=== PATIENT | male | born 1975 | race African-American/Black ===

== ENCOUNTER 2020-11-19 20:53 | Emergency (ER) | payer MEDICAID ==
[~2020-11-19] VITALS: Ht 182.9 cm; Wt 121.0 kg
[2020-11-19 21:06] VITALS: BP 174/113
== END 2020-11-19 21:57 | disposition left against medical advice (07) ==
LOC: ER 20:53
DX: R68.89 Other general symptoms and signs (principal); Z53.21 Procedure and treatment not carried out due to patient leaving prior to being seen by health care provider